=== PATIENT | male | born 1980 | race Caucasian/White ===

== ENCOUNTER 2020-04-19 13:10 | Emergency (ER) | payer OTHER ==
[~2020-04-19] VITALS: Ht 175.3 cm; Wt 70.5 kg
[2020-04-19 15:29] VITALS: BP 128/71
== END 2020-04-19 15:37 | disposition home or self-care (01) ==
LOC: EMS 13:15
DX: R04.2 Hemoptysis (principal); F17.210 Nicotine dependence, cigarettes, uncomplicated
CPT/HCPCS: 99406